=== PATIENT | female | born 1980 | race African-American/Black ===

== ENCOUNTER 2017-12-24 14:59 | Emergency (ER) | payer MEDICAID ==
[~2017-12-24] VITALS: Ht 160 cm; Wt 119.3 kg
[~2017-12-24 14:59] MED LIST: ASPI81CH43 PO; ATOR20TA50 PO; BENA20TA14 PO; GLIP-115 PO; IBUP800T24 PO; INS7030I SC; METF-370 PO; SPIR25TA8 PO
[2017-12-24 15:09] VITALS: BP 159/91
[2017-12-24 15:55] LABS: Basophils # (auto) 0.1 uL; Eosinophils # (auto) 0.2 uL; Lymphocytes # (auto) 2.2 uL; Monocytes # (auto) 0.8 uL; Red Cell Distribution Width 13.7 % (11.8-14.3); White Blood Cell 11.1 10^3/uL (4.4-10.8)
[2017-12-24 15:58] LABS: Basophils % (auto) 0.8 % (0.0-2.0); Eosinophils % (auto) 1.7 % (0.0-7.0); Hematocrit 42.2 % (36.0-46.0); Hemoglobin 13.5 g/dL (12.2-16.2); Lymphocytes % (auto) 19.8 % (10.0-50.0); Mean Corpuscular Hemoglobin 25.6 pg (28.0-32.0); Monocytes % (auto) 7.2 % (0.0-12.0); Neutrophils # (auto) 7.8 uL; Neutrophils % (auto) 70.5 % (37.0-80.0); Nucleated Red Blood Cells % 0.1 %; Platelet Count (auto) 338 10^3/uL (140-450); Red Blood Cells 5.27 10^6/uL (4.0-5.20)
[2017-12-24 16:08] LABS: Alanine Aminotransferase 28 U/L (13-56); Albumin 2.6 g/dL (3.4-5.0); Anion Gap 6 (5-15); Aspartate Aminotransferase 18 U/L (15-37); BUN/Creatinine Ratio 15.1; Blood Urea Nitrogen 13 mg/dL (7-18); Calcium 8.5 mg/dL (8.5-10.1); Carbon Dioxide 27 mmol/L (21-32); Chloride 101 mmol/L (98-107); GFR African American 95 mL/min; GFR Non-African American 78 mL/min; Glucose 278 mg/dL (74-106); Magnesium 1.9 mg/dL (1.6-2.6); Potassium 4.1 mmol/L (3.5-5.1); Sodium 134 mmol/L (136-145)
[2017-12-24 16:12] LABS: Alkaline Phosphatase 100 U/L (45-117); Bilirubin, Total 0.2 mg/dL (0.2-1.0); Total Protein 7.5 g/dL (6.4-8.2)
[2017-12-24 16:35] LABS: Urine Bacteria FEW /hpf (None Seen); Urine Blood 2+ /uL (Negative); Urine Mucus FEW (None Seen); Urine WBC 2 /hpf (0 - 5)
[2017-12-24 16:40] LABS: Urine Budding Yeast Few /hpf (None Seen)
== END 2017-12-24 17:56 | disposition left against medical advice (07) ==
LOC: ER 14:59
DX: F41.9 Anxiety disorder, unspecified (principal); E11.9 Type 2 diabetes mellitus without complications; I10 Essential (primary) hypertension
CPT/HCPCS: 36415; 71046; 80053; 81001; 81025; 83735; 83880; 84484; 85025; 93005

== ENCOUNTER 2020-04-18 13:06 | Emergency (ER) | payer MEDICAID ==
[~2020-04-18] VITALS: Ht 165.1 cm; Wt 135.2 kg
[~2020-04-18 13:06] MED LIST changes: -GLIP-115 PO; +GLIP5TAB12 PO; -IBUP800T24 PO; +IBUP800T27 PO
[2020-04-18 17:25] VITALS: BP 133/70
== END 2020-04-18 17:31 | disposition home or self-care (01) ==
LOC: ER 13:06
DX: M79.605 Pain in left leg (principal); I50.9 Heart failure, unspecified; Z88.1 Allergy status to other antibiotic agents; Z79.82 Long term (current) use of aspirin; Z79.899 Other long term (current) drug therapy
CPT/HCPCS: 93971

== ENCOUNTER 2020-11-24 10:17 | Emergency (ER) | payer MEDICAID ==
[~2020-11-24] VITALS: Ht 167.6 cm; Wt 116.1 kg
[2020-11-24 11:10] LABS: Albumin 1.9 g/dL (3.4-5.0); Anion Gap 9 (5-15); Blood Urea Nitrogen 46 mg/dL (7-18); Calcium 8.4 mg/dL (8.5-10.1); Carbon Dioxide 21 mmol/L (21-32); Chloride 109 mmol/L (98-107); Glucose 170 mg/dL (74-106); Potassium 4.8 mmol/L (3.5-5.1); Sodium 139 mmol/L (136-145)
[2020-11-24 11:15] LABS: Basophils # (auto) 0.1 10 ^3/uL (0-0.2); Basophils % (auto) 0.8 % (0.0-2.0); Eosinophils # (auto) 0.3 10 ^3/uL (0-0.8); Eosinophils % (auto) 3.3 % (0.0-7.0); Hematocrit 29.7 % (36.0-46.0); Hemoglobin 9.5 g/dL (12.2-16.2); Lymphocytes # (auto) 1.8 10 ^3/uL (0.4-5.4); Lymphocytes % (auto) 17.9 % (10.0-50.0); Mean Corpuscular Hemoglobin 24.9 pg (28.0-32.0); Mean Corpuscular Volume 77.9 fL (80.0-100.0); Monocytes # (auto) 0.8 10 ^3/uL (0-1.3); Monocytes % (auto) 8.1 % (0.0-12.0); Neutrophils % (auto) 69.9 % (37.0-80.0); Nucleated Red Blood Cells % 0.1 %; Red Blood Cells 3.81 10^6/uL (4.0-5.20)
[2020-11-24 11:17] LABS: Alanine Aminotransferase 14 U/L (13-56); Alkaline Phosphatase 72 U/L (45-117); Aspartate Aminotransferase 10 U/L (15-37); BUN/Creatinine Ratio 16.9; Bilirubin, Total 0.2 mg/dL (0.2-1.0); GFR African American 25 mL/min; GFR Non-African American 21 mL/min; Total Protein 6.1 g/dL (6.4-8.2)
[2020-11-24 13:46] VITALS: BP 175/78
== END 2020-11-24 13:51 | disposition home or self-care (01) ==
LOC: ER 10:17
DX: J18.9 Pneumonia, unspecified organism (principal); J45.909 Unspecified asthma, uncomplicated; I12.9 Hypertensive chronic kidney disease with stage 1 through stage 4 chronic kidney disease, or unspecified chronic kidney disease; E11.22 Type 2 diabetes mellitus with diabetic chronic kidney disease; N18.30 Chronic kidney disease, stage 3 unspecified; Z79.4 Long term (current) use of insulin; Z79.1 Long term (current) use of non-steroidal anti-inflammatories (NSAID); Z79.899 Other long term (current) drug therapy; Z88.1 Allergy status to other antibiotic agents; Z88.8 Allergy status to other drugs, medicaments and biological substances
CPT/HCPCS: 36415; 71045; 80053; 83735; 84443; 84484; 85025; 93005

== ENCOUNTER 2021-03-08 09:11 | Emergency (ER) | payer MEDICAID ==
[~2021-03-08] VITALS: Ht 172.7 cm; Wt 122.0 kg
[2021-03-08 09:22] VITALS: BP 230/101
[2021-03-08] MEDS ORDERED: cloNIDine HCL 0.1 MG TAB PO ONE (09:30)
[2021-03-08 10:23] LABS: Eosinophils # (auto) 0 10 ^3/uL (0-0.8); Eosinophils % (auto) 0.1 % (0.0-7.0); White Blood Cell 15.4 10^3/uL (4.4-10.8)
[2021-03-08 10:25] LABS: Basophils # (auto) 0.1 10 ^3/uL (0-0.2); Basophils % (auto) 0.5 % (0.0-2.0); Hematocrit 28.5 % (36.0-46.0); Hemoglobin 9.2 g/dL (12.2-16.2); Lymphocytes % (auto) 6.3 % (10.0-50.0); Mean Corpuscular Hemoglobin 25.4 pg (28.0-32.0); Mean Corpuscular Hgb Conc. 32.3 g/dL (32.0-36.0); Mean Corpuscular Volume 78.7 fL (80.0-100.0); Monocytes # (auto) 1.1 10 ^3/uL (0-1.3); Neutrophils # (auto) 13.2 10 ^3/uL (1.6-8.6); Neutrophils % (auto) 86.1 % (37.0-80.0); Red Blood Cells 3.62 10^6/uL (4.0-5.20); Red Cell Distribution Width 15.3 % (11.8-14.3)
[2021-03-08 10:47] LABS: Albumin 1.8 g/dL (3.4-5.0); Calcium 6.5 mg/dL (8.5-10.1); Potassium 4.8 mmol/L (3.5-5.1)
[2021-03-08 10:50] LABS: BUN/Creatinine Ratio 11.5; Bilirubin, Total 0.1 mg/dL (0.2-1.0); Total Protein 5.5 g/dL (6.4-8.2)
[2021-03-08] MEDS ORDERED: LEVO-28 PO (12:56)
[2021-03-08] MEDS ORDERED: cefTRIAXone W LIDOCAINE 1 GM IM IM ONE (13:00)
[2021-03-08] MEDS ORDERED: cefTRIAXone SOD 1,000 MG VL ONE (14:19)
== END 2021-03-08 15:55 | disposition home or self-care (01) ==
LOC: ER 09:11
DX: J18.9 Pneumonia, unspecified organism (principal); J45.901 Unspecified asthma with (acute) exacerbation; I10 Essential (primary) hypertension; E11.9 Type 2 diabetes mellitus without complications
CPT/HCPCS: 36415; 71046; 80053; 85025; 96372; 99284; J0696